=== PATIENT | male | born 1970 | race Caucasian/White ===

== ENCOUNTER 2024-09-02 11:21 | Day surgery (SDC) | payer OTHER ==
[~2024-09-02] VITALS: Ht 175.3 cm; Wt 120.8 kg
[~2024-09-02 11:21] MED LIST: LISI5TAB11 PO; PHENYLEPHRINE 10% OPHTH SOL 5ML OS PRN; VITA200016 PO
[2024-09-02] MEDS: OFLOXACIN 0.3 % (OCUFLOX) OPTH SOL 5ML OS ONE (12:00)
[2024-09-02] MEDS: LIDOCAINE 3.5 % 1ML OPHTH TOPICAL GEL OU ONE (12:00)
[2024-09-02] MEDS ORDERED: MIDAZOLAM INJ 2MG/2ML VIAL As Ordered ONE (12:26)
[2024-09-02] MEDS: TRYPAN BLUE 0.06 % 2.25 ML OPHTH SYR (VISIONBLUE) As Ordered ONE (12:53)
[2024-09-02] MEDS: VISCOAT 40-30MG/ML 0.5ML SYRINGE As Ordered ONE (12:53)
[2024-09-02] MEDS: LIDOCAINE 1% SDV 5ML VIAL As Ordered ONE (12:59)
[2024-09-02] MEDS: BSS IRRIG/VANCO(10MG)/TOBRA(5MG)/EPINEPH(1:1000-0.5CC)500ML BAG-ORONLY As Ordered ONE (12:59)
[2024-09-02] MEDS: CEFUROXIME 1MG/0.1ML INTRACAMERAL INJ As Ordered ONE (13:01)
[2024-09-02] MEDS: ATROPINE SULFATE 1% OPHTH SOLN 2ML BTL OS SCH (13:16)
[2024-09-02] MEDS: PHENYLEPHRINE 2.5% OPHTH SOL 2ML OS SCH (13:16)
[2024-09-02] MEDS: TROPICAMIDE 1% OPHTH SOLN 15ML OS SCH (13:16)
[2024-09-02 13:20] VITALS: BP 152/83; TEMP 97.7; O2SAT 99
== END 2024-09-02 13:39 | disposition home or self-care (01) ==
LOC: M SDC 11:21
PROVIDERS: ATTEND Ophthalmology
DX: H25.89 Other age-related cataract (principal); I10 Essential (primary) hypertension; Z68.41 Body mass index [BMI] 40.0-44.9, adult; Z79.899 Other long term (current) drug therapy; F17.210 Nicotine dependence, cigarettes, uncomplicated
CPT/HCPCS: 66984; A4649; J0697; J2250; V2632